=== PATIENT | female | born 1980 | race Caucasian/White ===

== ENCOUNTER 2016-11-24 00:34 | Emergency (ER) | payer MEDICAID ==
[~2016-11-24] VITALS: Ht 162.6 cm; Wt 58.5 kg
[~2016-11-24 00:34] MED LIST: ATE50T PO; BENA20TA4 PO; CYCL1TAB18 PO; DIPH-232 PO; FLU05NSL; FLUT50SP13; GLIP-115 PO; IBUP800T24 PO; LORA1TAB12 PO; OMEP20CA5 PO; ONDA4TAB5 PO; SIMV80TA73 PO
[2016-11-24 03:22] VITALS: BP 126/91
== END 2016-11-24 03:32 | disposition home or self-care (01) ==
LOC: ER 00:36
DX: S90.32XA Contusion of left foot, initial encounter (principal); M19.90 Unspecified osteoarthritis, unspecified site; J45.909 Unspecified asthma, uncomplicated; E11.9 Type 2 diabetes mellitus without complications; Z98.51 Tubal ligation status; Z98.890 Other specified postprocedural states; Z88.1 Allergy status to other antibiotic agents; Z88.2 Allergy status to sulfonamides; Z88.8 Allergy status to other drugs, medicaments and biological substances; Z91.040 Latex allergy status; Z91.018 Allergy to other foods; W22.8XXA Striking against or struck by other objects, initial encounter; Y93.89 Activity, other specified; Y99.8 Other external cause status; Y92.89 Other specified places as the place of occurrence of the external cause
CPT/HCPCS: 73620; 99284; L3260

== ENCOUNTER 2017-04-29 20:23 | Emergency (ER) | payer MEDICAID ==
[~2017-04-29] VITALS: Ht 162.6 cm; Wt 65.8 kg
[~2017-04-29 20:23] MED LIST changes: +BENA20TA14 PO; -BENA20TA4 PO; -OMEP20CA5 PO; +OMEP20CA74 PO
[2017-04-29 21:23] LABS: Urine Bilirubin Negative (Negative); Urine Color Yellow (Yellow); Urine Ketone TRACE (Negative); Urine Mucus FEW (None Seen); Urine Nitrite Negative (Negative); Urine RBC 70 /hpf (0 - 4); Urine Squamous Epithelial Cell FEW /hpf (<5); Urine Urobilinogen Normal (Negative); Urine pH 5.5 (5.0-8.0)
[2017-04-29 21:23] LABS: Basophils # (auto) 0.1 uL; Basophils % (auto) 0.7 % (0.0-2.0); CONDITION Y; Eosinophils # (auto) 0.1 uL; Eosinophils % (auto) 0.8 % (0.0-7.0); Hematocrit 40.6 % (36.0-46.0); Lymphocytes # (auto) 2.6 uL; Mean Corpuscular Hemoglobin 29.4 pg (28.0-32.0); Mean Corpuscular Hgb Conc. 34.5 g/dL (32.0-36.0); Mean Corpuscular Volume 85.1 fL (80.0-100.0); Mean Platelet Volume 9.9 fL (7.4-10.4); Monocytes # (auto) 0.7 uL; Monocytes % (auto) 8.9 % (0.0-12.0); Neutrophils # (auto) 4.5 uL; Neutrophils % (auto) 56.6 % (37.0-80.0); Platelet Count (auto) 279 10^3/uL (140-450); Red Cell Distribution Width 13.4 % (11.6-16.0); White Blood Cell 7.9 10^3/uL (4.4-10.8)
[2017-04-29 21:36] LABS: Urine Blood 2+ /uL (Negative); Urine Glucose 4+ mg/dL (Normal)
[2017-04-29 21:51] LABS: Albumin 3.8 g/dL (3.4-5.0); BUN/Creatinine Ratio 15.4; Calcium 8.8 mg/dL (8.5-10.1); Potassium 3.8 mmol/L (3.5-5.1)
[2017-04-29 21:54] LABS: Bilirubin, Total 0.2 mg/dL (0.2-1.0); Total Protein 7.7 g/dL (6.4-8.2)
[2017-04-30] MEDS ORDERED: ONDANSETRON HCL 4 MG/2 ML VIAL IV ONE (03:15)
[2017-04-30] MEDS ORDERED: MORPHINE SULF INJ 2 MG/ML SYRINGE 1ML IV ONE (03:15)
[2017-04-30 08:11] VITALS: BP 105/67
== END 2017-04-30 09:00 | disposition home or self-care (01) ==
LOC: ER 20:25
DX: E11.65 Type 2 diabetes mellitus with hyperglycemia (principal); R10.9 Unspecified abdominal pain; E11.43 Type 2 diabetes mellitus with diabetic autonomic (poly)neuropathy; K31.84 Gastroparesis; M19.90 Unspecified osteoarthritis, unspecified site; J45.909 Unspecified asthma, uncomplicated; Z98.51 Tubal ligation status; R53.1 Weakness; H53.8 Other visual disturbances; Z91.040 Latex allergy status; Z88.8 Allergy status to other drugs, medicaments and biological substances; Z88.1 Allergy status to other antibiotic agents
CPT/HCPCS: 36415; 74176; 80053; 81001; 81025; 82962; 83690; 85025; 96374; 96375; 99285; J2270; J2405

== ENCOUNTER 2018-03-06 23:05 | Emergency (ER) | payer MEDICAID ==
[~2018-03-06] VITALS: Ht 162.6 cm; Wt 65.8 kg
[2018-03-07 00:15] LABS: Urine Bacteria FEW /hpf (None Seen); Urine Blood 2+ /uL (Negative); Urine Mucus FEW (None Seen); Urine Specific Gravity 1.019 (1.001-1.035); Urine WBC 1884 /hpf (0 - 5); Urine WBC Clumps PRESENT /hpf (None Seen)
[2018-03-07 00:43] LABS: Basophils # (auto) 0.1 uL; Basophils % (auto) 0.8 % (0.0-2.0); Eosinophils # (auto) 0 uL; Eosinophils % (auto) 0.2 % (0.0-7.0); Hematocrit 43.5 % (36.0-46.0); Hemoglobin 14.5 g/dL (12.2-16.2); Mean Corpuscular Hemoglobin 29.7 pg (28.0-32.0); Mean Corpuscular Hgb Conc. 33.4 g/dL (32.0-36.0); Mean Corpuscular Volume 88.9 fL (80.0-100.0); Monocytes % (auto) 8.6 % (0.0-12.0); Neutrophils # (auto) 8.8 uL; Neutrophils % (auto) 73.4 % (37.0-80.0); Platelet Count (auto) 332 10^3/uL (140-450); Red Blood Cells 4.89 10^6/uL (4.0-5.20); Red Cell Distribution Width 13.3 % (11.8-14.3)
[2018-03-07 01:01] LABS: INR 0.93 (0.9-1.15); Partial Thromboplastin Time 25.2 sec (22.64-33.71); Prothrombin Time 10.1 sec (9.37-12.3)
[2018-03-07 01:02] LABS: Alanine Aminotransferase 56 U/L (13-56); Albumin 3.6 g/dL (3.4-5.0); Amylase 33 U/L (25-115); Anion Gap 12 (5-15); Aspartate Aminotransferase 25 U/L (15-37); BUN/Creatinine Ratio 15.3; Blood Urea Nitrogen 13 mg/dL (7-18); Calcium 9.6 mg/dL (8.5-10.1); Carbon Dioxide 25 mmol/L (21-32); Chloride 99 mmol/L (98-107); GFR African American 98 mL/min; GFR Non-African American 81 mL/min; Glucose 225 mg/dL (74-106); Lipase 96 U/L (73-393); Sodium 136 mmol/L (136-145)
[2018-03-07 01:07] LABS: Alkaline Phosphatase 102 U/L (45-117); Bilirubin, Total 0.5 mg/dL (0.2-1.0); Total Protein 8.6 g/dL (6.4-8.2)
[2018-03-07 07:58] VITALS: BP 144/98
== END 2018-03-07 08:06 | disposition home or self-care (01) ==
LOC: ER 23:08
DX: N39.0 Urinary tract infection, site not specified (principal); K76.0 Fatty (change of) liver, not elsewhere classified; J45.909 Unspecified asthma, uncomplicated; M19.90 Unspecified osteoarthritis, unspecified site; E11.9 Type 2 diabetes mellitus without complications; Z88.1 Allergy status to other antibiotic agents; Z88.8 Allergy status to other drugs, medicaments and biological substances; Z79.899 Other long term (current) drug therapy; Z98.51 Tubal ligation status; Z79.84 Long term (current) use of oral hypoglycemic drugs; Z88.2 Allergy status to sulfonamides
CPT/HCPCS: 36415; 74176; 80053; 81001; 82150; 82962; 83690; 84484; 85025; 85610; 85730; 87040; 93005

== ENCOUNTER 2018-11-27 18:29 | Emergency (ER) | payer MEDICAID ==
[~2018-11-27] VITALS: Ht 162.6 cm; Wt 61.2 kg
[2018-11-27 18:57] LABS: Basophils # (auto) 0 uL; Basophils % (auto) 0.7 % (0.0-2.0); Eosinophils # (auto) 0 uL; Eosinophils % (auto) 0.6 % (0.0-7.0); Hematocrit 43.2 % (36.0-46.0); Hemoglobin 15.5 g/dL (12.2-16.2); Lymphocytes # (auto) 2.5 uL; Mean Corpuscular Hemoglobin 31.7 pg (28.0-32.0); Mean Corpuscular Hgb Conc. 35.8 g/dL (32.0-36.0); Mean Corpuscular Volume 88.7 fL (80.0-100.0); Monocytes # (auto) 0.5 uL; Monocytes % (auto) 8.2 % (0.0-12.0); Neutrophils # (auto) 3.2 uL; Neutrophils % (auto) 50.5 % (37.0-80.0); Nucleated Red Blood Cells % 0.5 %; Platelet Count (auto) 226 10^3/uL (140-450); Red Blood Cells 4.87 10^6/uL (4.0-5.20); Red Cell Distribution Width 13.1 % (11.8-14.3); White Blood Cell 6.3 10^3/uL (4.4-10.8)
[2018-11-27 19:21] LABS: Albumin 3.5 g/dL (3.4-5.0); Anion Gap 12 (5-15); Blood Urea Nitrogen 11 mg/dL (7-18); Calcium 8.3 mg/dL (8.5-10.1); Carbon Dioxide 21 mmol/L (21-32); Chloride 102 mmol/L (98-107); Glucose 149 mg/dL (74-106); Potassium 3.9 mmol/L (3.5-5.1); Sodium 135 mmol/L (136-145)
[2018-11-27 19:22] LABS: GFR African American 101 mL/min; GFR Non-African American 84 mL/min
[2018-11-27 19:31] LABS: Alkaline Phosphatase 84 U/L (45-117); Bilirubin, Total 0.5 mg/dL (0.2-1.0)
[2018-11-27 19:32] LABS: Alanine Aminotransferase 52 U/L (13-56); Aspartate Aminotransferase 53 U/L (15-37)
[2018-11-27] MEDS ORDERED: ALBUTEROL SULF 2.5 MG/0.5ML(0.5%) NEB SOLN NEB ONE (20:00)
[2018-11-27] MEDS ORDERED: IPRATROPIUM BROM 0.5 MG/2.5ML INH SOL NEB ONE (20:00)
[2018-11-27] MEDS ORDERED: cefTRIAXone SOD 1,000 MG VL IM ONE (20:30)
[2018-11-27 21:00] VITALS: BP 142/88
[2018-11-27] MEDS ORDERED: LIDOCAINE 2% (LOCAL ANESTH.) PF 5ml SDV ONE (21:05)
[2018-11-27 21:06] LABS: BUN/Creatinine Ratio 13.4
== END 2018-11-27 21:13 | disposition home or self-care (01) ==
LOC: ER 18:29
DX: J20.9 Acute bronchitis, unspecified (principal); R00.0 Tachycardia, unspecified; M19.90 Unspecified osteoarthritis, unspecified site; J45.909 Unspecified asthma, uncomplicated; E11.9 Type 2 diabetes mellitus without complications; Z88.1 Allergy status to other antibiotic agents; Z88.8 Allergy status to other drugs, medicaments and biological substances; Z91.040 Latex allergy status; Z91.018 Allergy to other foods; Z88.2 Allergy status to sulfonamides; Z79.84 Long term (current) use of oral hypoglycemic drugs; Z79.899 Other long term (current) drug therapy; Z98.51 Tubal ligation status
CPT/HCPCS: 36415; 71046; 80053; 84484; 85025; 93005; 94640; 96372; 99284; J0696; J2001; J7611; J7644

== ENCOUNTER 2019-04-12 13:36 | Emergency (ER) | payer MEDICAID ==
[~2019-04-12] VITALS: Ht 162.6 cm; Wt 63.5 kg
[2019-04-12 15:44] VITALS: BP 133/93
== END 2019-04-12 15:58 | disposition home or self-care (01) ==
LOC: ER 13:45
DX: S46.912A Strain of unspecified muscle, fascia and tendon at shoulder and upper arm level, left arm, initial encounter (principal); J45.909 Unspecified asthma, uncomplicated; E11.9 Type 2 diabetes mellitus without complications; Z98.51 Tubal ligation status; Z88.1 Allergy status to other antibiotic agents; Z88.6 Allergy status to analgesic agent; Z88.8 Allergy status to other drugs, medicaments and biological substances; Z91.040 Latex allergy status; Z88.2 Allergy status to sulfonamides; Z91.018 Allergy to other foods; Z79.899 Other long term (current) drug therapy; W01.0XXA Fall on same level from slipping, tripping and stumbling without subsequent striking against object, initial encounter; Y93.89 Activity, other specified; Y92.89 Other specified places as the place of occurrence of the external cause; Y99.8 Other external cause status
CPT/HCPCS: 73030

== ENCOUNTER 2019-11-23 19:17 | Emergency (ER) | payer MEDICAID ==
[~2019-11-23] VITALS: Ht 162.6 cm; Wt 62.7 kg
[~2019-11-23 19:17] MED LIST changes: -GLIP-115 PO; +GLIP5TAB12 PO; +ONDA-144 PO; -ONDA4TAB5 PO
[2019-11-23 20:33] LABS: Basophils # (auto) 0 uL; Basophils % (auto) 0.6 % (0.0-2.0); Eosinophils # (auto) 0 uL; Eosinophils % (auto) 0.6 % (0.0-7.0); Hemoglobin 14.9 g/dL (12.2-16.2); Lymphocytes % (auto) 35.5 % (10.0-50.0); Mean Corpuscular Hemoglobin 30.6 pg (28.0-32.0); Mean Corpuscular Hgb Conc. 33.8 g/dL (32.0-36.0); Mean Corpuscular Volume 90.4 fL (80.0-100.0); Monocytes # (auto) 0.4 uL; Monocytes % (auto) 6.6 % (0.0-12.0); Neutrophils # (auto) 3.2 uL; Neutrophils % (auto) 56.7 % (37.0-80.0); Nucleated Red Blood Cells % 0.1 %; Platelet Count (auto) 247 10^3/uL (140-450); Red Blood Cells 4.87 10^6/uL (4.0-5.20); Red Cell Distribution Width 13.7 % (11.8-14.3); White Blood Cell 5.6 10^3/uL (4.4-10.8)
[2019-11-23 20:43] LABS: Albumin 3.7 g/dL (3.4-5.0); Anion Gap 10 (5-15); Blood Urea Nitrogen 11 mg/dL (7-18); Calcium 8.7 mg/dL (8.5-10.1); Carbon Dioxide 24 mmol/L (21-32); Chloride 103 mmol/L (98-107); Glucose 321 mg/dL (74-106); Magnesium 2.2 mg/dL (1.6-2.6); Potassium 4.1 mmol/L (3.5-5.1); Sodium 137 mmol/L (136-145)
[2019-11-23 20:49] LABS: Alanine Aminotransferase 26 U/L (13-56); Alkaline Phosphatase 73 U/L (45-117); Aspartate Aminotransferase 24 U/L (15-37); BUN/Creatinine Ratio 11.2; Bilirubin, Total 0.4 mg/dL (0.2-1.0); GFR African American 82 mL/min; GFR Non-African American 68 mL/min; Total Protein 7.9 g/dL (6.4-8.2)
[2019-11-24 07:17] LABS: Partial Thromboplastin Time 23.5 sec (23.64-32.05)
[2019-11-24 07:22] VITALS: BP 127/90
== END 2019-11-24 07:23 | disposition home or self-care (01) ==
LOC: ER 19:21
DX: F41.9 Anxiety disorder, unspecified (principal); F32.9 Major depressive disorder, single episode, unspecified; E11.9 Type 2 diabetes mellitus without complications; M19.90 Unspecified osteoarthritis, unspecified site; Z98.51 Tubal ligation status; Z79.899 Other long term (current) drug therapy; Z88.1 Allergy status to other antibiotic agents; Z88.2 Allergy status to sulfonamides; Z88.6 Allergy status to analgesic agent; Z88.8 Allergy status to other drugs, medicaments and biological substances
CPT/HCPCS: 36415; 71045; 80053; 82962; 83735; 84443; 84484; 85025; 85379; 85610; 85730; 93005

== ENCOUNTER 2023-09-23 15:21 | Inpatient (IN) | payer MEDICAID ==
[~2023-09-23] VITALS: Ht 162.6 cm; Wt 61.0 kg
[~2023-09-23 15:21] MED LIST changes: +BENA-36 PO; -BENA20TA14 PO; +CYCL-839 PO; -CYCL1TAB18 PO; +IBUP-1456 PO; -IBUP800T24 PO; +LORA-1123 PO; -LORA1TAB12 PO; +SIMV80TA17 PO; -SIMV80TA73 PO
[2023-09-23] MEDS ORDERED: SODIUM CHLORIDE 0.9% 1,000 ML IV ONE (15:45)
[2023-09-23 16:17] LABS: Basophils # (auto) 0 10 ^3/uL (0-0.2); Basophils % (auto) 0.4 % (0.0-2.0); Eosinophils # (auto) 0 10 ^3/uL (0-0.8); Eosinophils % (auto) 0.3 % (0.0-7.0); Hematocrit 45.3 % (36.0-46.0); Hemoglobin 14.7 g/dL (12.2-16.2); Lymphocytes # (auto) 2.9 10 ^3/uL (0.4-5.4); Lymphocytes % (auto) 30.7 % (10.0-50.0); Mean Corpuscular Hemoglobin 31.2 pg (28.0-32.0); Mean Corpuscular Hgb Conc. 32.4 g/dL (32.0-36.0); Mean Corpuscular Volume 96.4 fL (80.0-100.0); Monocytes # (auto) 0.5 10 ^3/uL (0-1.3); Neutrophils % (auto) 63.6 % (37.0-80.0); Red Cell Distribution Width 12.9 % (11.8-14.3); White Blood Cell 9.4 10^3/uL (4.4-10.8)
[2023-09-23] MEDS ORDERED: PROCHLORPERAZINE EDISYLATE 5 MG/ML 2ML VIAL IV ONE (16:30)
[2023-09-23] MEDS ORDERED: PROCHLORPERAZINE MALEATE 10 MG TAB PO ONE (16:30)
[2023-09-23] MEDS ORDERED: MORPHINE SULFATE 10 MG/ML INJ 1ML SDV IV ONE (16:30)
[2023-09-23] MEDS ORDERED: LACTATED RINGER'S 2,000 ML IV ONE (16:30)
[2023-09-23 16:33] LABS: Alanine Aminotransferase 40 U/L (7-40); Albumin 4.9 g/dL (3.2-4.8); Alkaline Phosphatase 89 U/L (46-116); Anion Gap 27 (5-15); Aspartate Aminotransferase 28 U/L (13-40); Bilirubin, Total 0.5 mg/dL (0.2-1.0); Blood Urea Nitrogen 17 mg/dL (9-23); Calcium 12.9 mg/dL (8.7-10.4); Carbon Dioxide 12 mmol/L (20-30); Chloride 90 mmol/L (98-107); Magnesium 1.9 mg/dL (1.6-2.6); Sodium 129 mmol/L (136-145); Total Protein 7.8 g/dL (5.7-8.2)
[2023-09-23 16:35] LABS: Glucose 699 mg/dL (74-106)
[2023-09-23 16:38] LABS: INR 0.98 (0.9-1.15); Partial Thromboplastin Time 23.9 SEC (24.5-34.5); Prothrombin Time 10.3 sec (9.3-11.8)
[2023-09-23 16:41] LABS: Base Excess -12.8 mmol/L (-2.0-2.0)
[2023-09-23] MEDS ORDERED: MORPHINE SULFATE INJ 2 MG/ml SYRG IV ONE (16:45)
[2023-09-23] MEDS ORDERED: INSULIN DRIP 100 UNIT/100ML 100 ML IV SCH (17:00)
[2023-09-23] MEDS ORDERED: InsuLIN REG 1unit/0.01ml Soln (100units/ml) IV ONE (17:00)
[2023-09-23] MEDS ORDERED: DEXTROSE (50%) 50ML SYRG IV PRN ×2 (17:00→18:30)
[2023-09-23] MEDS ORDERED: ACCU-CHEK COMFORT CURVE STRIP VI SCH (18:00)
[2023-09-23] MEDS: INSULIN DRIP 100 UNIT/100ML 100 ML IV SCH ×2 (18:30→21:08)
[2023-09-23] MEDS ORDERED: POTASSIUM CHL 20MEQ/100ML 100 ML IV PRN (18:30)
[2023-09-23] MEDS ORDERED: NITROGLYCERIN 0.4 MG SL TAB SL PRN (18:30)
[2023-09-23] MEDS ORDERED: TEMAZEPAM 15 MG CAP PO PRN (18:30)
[2023-09-23] MEDS ORDERED: MORPHINE SULFATE INJ 2 MG/ml SYRG IV PRN (18:30)
[2023-09-23] MEDS ORDERED: HYDROcodone-ACET 5/325MG TAB PO PRN (18:30)
[2023-09-23] MEDS ORDERED: ONDANSETRON HCL 4 MG/2 ML VIAL IV PRN (18:30)
[2023-09-23] MEDS ORDERED: DOCUSATE SOD 100 MG CAP PO PRN (18:30)
[2023-09-23] MEDS ORDERED: POTASSIUM CHL 20MEQ/100ML 200 ML IV PRN (18:30)
[2023-09-23] MEDS ORDERED: INSULIN LANTUS (GLARGINE) 1 /0.01ml (100units/ml) SC ONE (18:30)
[2023-09-23] MEDS ORDERED: ACETAMINOPHEN 325 MG TAB PO PRN (18:30)
[2023-09-23] MEDS ORDERED: ALPRAZolam 0.5 MG TAB PO PRN (18:45)
[2023-09-23] MEDS: SODIUM CHLORIDE 0.9% 1,000 ML IV SCH ×2 (18:56→20:30)
[2023-09-23] MEDS: ACCU-CHEK COMFORT CURVE STRIP VI SCH ×3 (19:34→22:35)
[2023-09-23 20:00] VITALS: PULSE 131; RESP 24; O2SAT 98
[2023-09-23 22:10] LABS: Chloride 103 mmol/L (98-107); Potassium 4.5 mmol/L (3.5-5.1); Sodium 137 mmol/L (136-145)
[2023-09-23 22:11] LABS: Anion Gap 13 (5-15); Carbon Dioxide 21 mmol/L (20-30)
[2023-09-23 22:16] LABS: BUN/Creatinine Ratio 11.2 (10.0-20.0); Blood Urea Nitrogen 16 mg/dL (9-23); Glucose 279 mg/dL (74-106); Magnesium 1.5 mg/dL (1.6-2.6)
[2023-09-23] MEDS ORDERED: SODIUM CHLORIDE 0.9% 1,000 ML IV SCH (22:30)
[2023-09-23 22:37] LABS: Phosphorus 4.7 mg/dL (2.4-5.1)
[2023-09-24] MEDS: ACCU-CHEK COMFORT CURVE STRIP VI SCH ×9 (00:10→21:45)
[2023-09-24] MEDS ORDERED: SODIUM CHLORIDE 0.9% 1,000 ML IV SCH (00:30)
[2023-09-24 02:15] LABS: Chloride 107 mmol/L (98-107); Potassium 4.6 mmol/L (3.5-5.1); Sodium 139 mmol/L (136-145)
[2023-09-24 02:16] LABS: Anion Gap 9 (5-15); Calcium 10.9 mg/dL (8.7-10.4); Carbon Dioxide 23 mmol/L (20-30)
[2023-09-24 02:21] LABS: BUN/Creatinine Ratio 11.7 (10.0-20.0); Blood Urea Nitrogen 14 mg/dL (9-23); Glucose 203 mg/dL (74-106)
[2023-09-24 02:22] LABS: Magnesium 1.3 mg/dL (1.6-2.6)
[2023-09-24 02:23] LABS: Phosphorus 3.9 mg/dL (2.4-5.1)
[2023-09-24] MEDS: D5W/SOD CHL 0.45% 1,000 ML IV SCH ×3 (03:46→21:02)
[2023-09-24 05:09] LABS: Chloride 109 mmol/L (98-107); Potassium 4.1 mmol/L (3.5-5.1); Sodium 139 mmol/L (136-145)
[2023-09-24 05:10] LABS: Anion Gap 10 (5-15); Basophils # (auto) 0 10 ^3/uL (0-0.2); Basophils % (auto) 0.4 % (0.0-2.0); Carbon Dioxide 20 mmol/L (20-30); Eosinophils # (auto) 0.2 10 ^3/uL (0-0.8); Eosinophils % (auto) 2.3 % (0.0-7.0); Hematocrit 35.2 % (36.0-46.0); Lymphocytes # (auto) 3.5 10 ^3/uL (0.4-5.4); Lymphocytes % (auto) 41.6 % (10.0-50.0); Mean Corpuscular Hgb Conc. 34.1 g/dL (32.0-36.0); Mean Corpuscular Volume 93.8 fL (80.0-100.0); Monocytes # (auto) 0.7 10 ^3/uL (0-1.3); Monocytes % (auto) 8.8 % (0.0-12.0); Neutrophils % (auto) 46.9 % (37.0-80.0); Nucleated Red Blood Cells % 0.1 %; Red Blood Cells 3.76 10^6/uL (4.0-5.20); Red Cell Distribution Width 12.7 % (11.8-14.3); White Blood Cell 8.4 10^3/uL (4.4-10.8)
[2023-09-24 05:11] LABS: Calcium 9.7 mg/dL (8.7-10.4)
[2023-09-24 05:15] LABS: Glucose 230 mg/dL (74-106)
[2023-09-24 05:16] LABS: Blood Urea Nitrogen 11 mg/dL (9-23); Magnesium 1.2 mg/dL (1.6-2.6)
[2023-09-24 05:18] LABS: Phosphorus 3.4 mg/dL (2.4-5.1)
[2023-09-24 06:14] LABS: BUN/Creatinine Ratio 12.2 (10.0-20.0)
[2023-09-24] MEDS: InsuLIN REG 1unit/0.01ml Soln (100units/ml) SC SCH ×3 (06:43→16:56)
[2023-09-24 07:16] LABS: Urine Bacteria MANY /hpf (None Seen); Urine Blood Negative /uL (Negative); Urine Clarity HAZY (Clear); Urine Mucus FEW (None Seen); Urine Protein, UAD Negative (Negative); Urine Specific Gravity 1.024 (1.001-1.035); Urine Urobilinogen Normal (Negative); Urine WBC 4 /hpf (0 - 5)
[2023-09-24 07:39] LABS: Urine Color STRAW (Yellow)
[2023-09-24 07:46] LABS: Amphetamine Screen, Urine Neg (NEGATIVE); Barbiturate Scree,Urine Neg (NEGATIVE); Benzodiazephine Screen, Urine Neg (NEGATIVE); Cannabinoid Screen, Urine Neg (NEGATIVE); Cocaine Screen, Urine Neg (NEGATIVE); Opiate Scree,Urine Neg (NEGATIVE); Phencyclidine Screen, Urine Neg (NEGATIVE)
[2023-09-24 08:00] VITALS: PULSE 118; RESP 15; O2SAT 92
[2023-09-24] MEDS: MAGNESIUM SULFATE 1GM/100ML 100 ML IV SCH ×5 (08:37→14:30)
[2023-09-24] MEDS: ENOXAPARIN SOD 40 MG/0.4 ML SYRINGE SC SCH (10:29)
[2023-09-24] MEDS: INSULIN LANTUS (GLARGINE) 1 /0.01ml (100units/ml) SC SCH (10:29)
[2023-09-24] MEDS: ATENOLOL 25 MG TAB PO SCH (10:30)
[2023-09-24 10:37] LABS: Chloride 106 mmol/L (98-107); Sodium 137 mmol/L (136-145)
[2023-09-24 10:38] LABS: Anion Gap 7 (5-15); Carbon Dioxide 24 mmol/L (20-30)
[2023-09-24 10:39] LABS: Calcium 9.4 mg/dL (8.7-10.4)
[2023-09-24 10:43] LABS: Glucose 291 mg/dL (74-106)
[2023-09-24 10:44] LABS: BUN/Creatinine Ratio 11.1 (10.0-20.0); Blood Urea Nitrogen 12 mg/dL (9-23); Magnesium 1.5 mg/dL (1.6-2.6)
[2023-09-24 10:46] LABS: Phosphorus 1.8 mg/dL (2.4-5.1)
[2023-09-24] MEDS ORDERED: SODIUM PHOSPHATES 40 MEQ in D5W 5% 250 ML IV ONE (11:45)
[2023-09-24 14:33] LABS: Chloride 105 mmol/L (98-107); Potassium 3.7 mmol/L (3.5-5.1); Sodium 135 mmol/L (136-145)
[2023-09-24 14:34] LABS: Anion Gap 8 (5-15); Carbon Dioxide 22 mmol/L (20-30)
[2023-09-24 14:35] LABS: Calcium 9.1 mg/dL (8.7-10.4)
[2023-09-24 14:39] LABS: Glucose 319 mg/dL (74-106)
[2023-09-24 14:40] LABS: BUN/Creatinine Ratio 9.2 (10.0-20.0); Blood Urea Nitrogen 10 mg/dL (9-23); Magnesium 2.2 mg/dL (1.6-2.6)
[2023-09-24 14:42] LABS: Phosphorus 2.8 mg/dL (2.4-5.1)
[2023-09-24] MEDS ORDERED: GABA-1250 PO (17:42)
[2023-09-24] MEDS ORDERED: FLUT110A INH (17:42)
[2023-09-24] MEDS ORDERED: ZOLP10TA6 PO (17:42)
[2023-09-24] MEDS ORDERED: MIRT1TAB15 PO (17:42)
[2023-09-24 17:51] VITALS: BP 116/77; PULSE 86; RESP 18; TEMP 97.8; O2SAT 97
[2023-09-24 19:30] VITALS: PULSE 85; RESP 20; O2SAT 96
[2023-09-24 20:06] LABS: Chloride 107 mmol/L (98-107); Potassium 4.1 mmol/L (3.5-5.1); Sodium 136 mmol/L (136-145)
[2023-09-24 20:07] LABS: Anion Gap 7 (5-15); Calcium 8.5 mg/dL (8.7-10.4); Carbon Dioxide 22 mmol/L (20-30)
[2023-09-24 20:12] LABS: Blood Urea Nitrogen 7 mg/dL (9-23); Glucose 205 mg/dL (74-106)
[2023-09-24 20:13] LABS: Magnesium 1.8 mg/dL (1.6-2.6)
[2023-09-24 20:17] LABS: BUN/Creatinine Ratio 7.2 (10.0-20.0)
[2023-09-24] MEDS ORDERED: DEXTROSE (50%) 50ML SYRG IV PRN (20:45)
[2023-09-24 22:00] VITALS: BP 124/72; PULSE 84; RESP 18; TEMP 98.2; O2SAT 97
[2023-09-24] MEDS ORDERED: InsuLIN REG 1unit/0.01ml Soln (100units/ml) SC SCH (22:00)
[2023-09-24 22:30] LABS: Chloride 106 mmol/L (98-107); Potassium 3.9 mmol/L (3.5-5.1); Sodium 136 mmol/L (136-145)
[2023-09-24 22:31] LABS: Anion Gap 7 (5-15); Calcium 8.5 mg/dL (8.7-10.4); Carbon Dioxide 23 mmol/L (20-30)
[2023-09-24 22:36] LABS: Glucose 221 mg/dL (74-106)
[2023-09-24 22:37] LABS: Magnesium 1.6 mg/dL (1.6-2.6)
[2023-09-24 22:38] LABS: Phosphorus 2.5 mg/dL (2.4-5.1)
[2023-09-24 22:59] LABS: BUN/Creatinine Ratio 9.4 (10.0-20.0); Blood Urea Nitrogen 10 mg/dL (9-23)
[2023-09-25] MEDS: ACCU-CHEK COMFORT CURVE STRIP VI SCH ×3 (02:00→11:32)
[2023-09-25 05:00] VITALS: BP 141/85; PULSE 87; RESP 18; TEMP 98.6; O2SAT 96
[2023-09-25] MEDS: InsuLIN REG 1unit/0.01ml Soln (100units/ml) SC SCH ×4 (05:55→11:38)
[2023-09-25 08:00] VITALS: PULSE 94
[2023-09-25 09:00] VITALS: BP 129/76; PULSE 92; RESP 16; TEMP 98.2; O2SAT 97
[2023-09-25] MEDS: ATENOLOL 25 MG TAB PO SCH (09:49)
[2023-09-25] MEDS: ENOXAPARIN SOD 40 MG/0.4 ML SYRINGE SC SCH (09:49)
[2023-09-25] MEDS: D5W/SOD CHL 0.45% 1,000 ML IV SCH (09:55)
[2023-09-25] MEDS: INSULIN LANTUS (GLARGINE) 1 /0.01ml (100units/ml) SC SCH (09:55)
[2023-09-25] MEDS ORDERED: INSU1INJ19 SC (11:52)
[2023-09-25 12:29] VITALS: BP 129/76; PULSE 92; RESP 18; TEMP 36.8; O2SAT 92
== END 2023-09-25 13:05 | disposition home or self-care (01) | DRG 420 ==
LOC: ER 15:21 → TELE 18:35 → TELE-WESTW 09-24 19:07
PROVIDERS: ADMIT Nurse Practitioner; ATTEND Nurse Practitioner
DX: E10.10 Type 1 diabetes mellitus with ketoacidosis without coma (principal); N17.0 Acute kidney failure with tubular necrosis; F43.10 Post-traumatic stress disorder, unspecified; I10 Essential (primary) hypertension; J45.909 Unspecified asthma, uncomplicated; E87.1 Hypo-osmolality and hyponatremia; M19.90 Unspecified osteoarthritis, unspecified site; Z88.2 Allergy status to sulfonamides; Z88.8 Allergy status to other drugs, medicaments and biological substances; Z91.018 Allergy to other foods; Z91.040 Latex allergy status; Z79.4 Long term (current) use of insulin; Z80.9 Family history of malignant neoplasm, unspecified; Z82.3 Family history of stroke; Z82.49 Family history of ischemic heart disease and other diseases of the circulatory system; Z83.3 Family history of diabetes mellitus; Z88.1 Allergy status to other antibiotic agents; Z98.891 History of uterine scar from previous surgery; I25.2 Old myocardial infarction
CPT/HCPCS: 36415; 36600; 71045; 80048; 80053; 80307; 81001; 81025; 82010; 82805; 82962; 83605; 83690; 83735; 83880; 83930; 84100; 84484; 84702; 85025; 85610; 85730; 93005; G0378; J1815; J7060; Q0164